=== PATIENT | female | born 1970 | race Caucasian/White ===

== ENCOUNTER 2017-11-18 12:52 | Outpatient (CLI) | payer BC | END 2017-11-18 12:53 | disposition home or self-care (01) | LOC: BICMAMMO 12:52 | PROVIDERS: ATTEND Obstetrics & Gynecology | DX: Z12.31 Encounter for screening mammogram for malignant neoplasm of breast (principal) | CPT/HCPCS: 77063; 77067 ==

== ENCOUNTER 2018-10-27 10:34 | Outpatient (CLI) | payer BC ==
--- NOTE | 2018-10-27 10:58 | ULT ---
FRenal ultrasound: INDICATION: History of recurrent UTIs COMPARISON: Prior complete abdominal ultrasound dated 12/16/2011 FINDINGS: No focal renal lesion or hydronephrosis is evident. The right kidney measured 9.8 x 6.3 x 6.4 cm. The left kidney measured 10.2 x 5.5 x 5 cm. The prevoid bladder volume was 178.04 cm. The left ureteral jet is seen at the level of the bladder. The right ureteral jet was not seen. IMPRESSION: No focal renal lesion or hydronephrosis. Transcribed Date/Time: 10/27/2018 11:14 AM
== END 2018-10-27 10:35 | disposition home or self-care (01) ==
LOC: BICULT 10:34
PROVIDERS: ATTEND Urology
DX: N39.0 Urinary tract infection, site not specified (principal); R35.0 Frequency of micturition; Z98.890 Other specified postprocedural states
CPT/HCPCS: 76770

== ENCOUNTER 2018-11-29 10:09 | Outpatient (CLI) | payer BC ==
--- NOTE | 2018-11-29 10:51 | MMO ---
Bilateral MAMMO Bilat Screen [facility]. CLINICAL HISTORY: Patient is 48 years old and is seen for screening. The patient has no family history of breast cancer. The patient has no personal history of cancer. VIEWS: The views performed were: bilateral craniocaudal with tomosynthesis and bilateral mediolateral oblique with tomosynthesis. FILMS COMPARED: The present examination has been compared to prior imaging studies performed at [facility] on 09/12/2012, 11/10/2013, 01/01/2015, 07/22/2016 and 11/18/2017. MAMMOGRAM FINDINGS: There are scattered fibroglandular densities. There are stable benign appearing calcifications seen in both breasts. There are no suspicious masses, suspicious calcifications, or new areas of architectural distortion. IMPRESSION: THERE IS NO MAMMOGRAPHIC EVIDENCE OF MALIGNANCY. A ROUTINE FOLLOW-UP MAMMOGRAM IN 1 YEAR IS RECOMMENDED. THE RESULTS OF THIS EXAM WERE SENT TO THE PATIENT. ACR BI-RADS Category 2 - Benign finding MAMMOGRAPHY NOTE: 1. A negative mammogram report should not delay a biopsy if a dominant of clinically suspicious mass is present. 2. Approximately 10% to 15% of breast cancers are not detected by mammography. 3. Adenosis and dense breasts may obscure an underlying neoplasm.
== END 2018-11-29 10:10 | disposition home or self-care (01) ==
LOC: BICMAMMO 10:09
PROVIDERS: ATTEND Obstetrics & Gynecology
DX: Z12.31 Encounter for screening mammogram for malignant neoplasm of breast (principal)
CPT/HCPCS: 77063; 77067

== ENCOUNTER 2020-03-20 12:06 | Outpatient (CLI) | payer BC ==
--- NOTE | 2020-03-20 12:48 | MMO ---
Bilateral MAMMO Bilat Screen [facility]. CLINICAL HISTORY: Patient is 49 years old and is seen for screening. The patient has no family history of breast cancer. The patient has no personal history of cancer. VIEWS: The views performed were: bilateral craniocaudal with tomosynthesis and bilateral mediolateral oblique with tomosynthesis. FILMS COMPARED: The present examination has been compared to prior imaging studies performed at [facility] on 01/01/2015, 07/22/2016, 11/18/2017 and 11/29/2018. This study has been interpreted with the assistance of computer-aided detection. MAMMOGRAM FINDINGS: There are scattered fibroglandular densities. Finding 1: There are stable benign appearing calcifications seen in both breasts. Finding 2: There is a stable intramammary lymph node seen in the right breast. There are no suspicious masses, suspicious calcifications, or new areas of architectural distortion. IMPRESSION: THERE IS NO MAMMOGRAPHIC EVIDENCE OF MALIGNANCY. A ROUTINE FOLLOW-UP MAMMOGRAM IN 1 YEAR IS RECOMMENDED. THE RESULTS OF THIS EXAM WERE SENT TO THE PATIENT. ACR BI-RADS Category 2 - Benign finding MAMMOGRAPHY NOTE: 1. A negative mammogram report should not delay a biopsy if a dominant of clinically suspicious mass is present. 2. Approximately 10% to 15% of breast cancers are not detected by mammography. 3. Adenosis and dense breasts may obscure an underlying neoplasm. Reported by: ALLY CANAS MD Electonically Signed: [id number]
== END 2020-03-20 12:07 | disposition home or self-care (01) ==
LOC: BICMAMMO 12:06
PROVIDERS: ATTEND Obstetrics & Gynecology
DX: Z12.31 Encounter for screening mammogram for malignant neoplasm of breast (principal)
CPT/HCPCS: 77063; 77067

== ENCOUNTER 2021-07-24 11:43 | Outpatient (CLI) | payer BC | END 2021-07-24 11:44 | disposition home or self-care (01) | LOC: BICMAMMO 11:43 | PROVIDERS: ATTEND Obstetrics & Gynecology | DX: Z12.31 Encounter for screening mammogram for malignant neoplasm of breast (principal) | CPT/HCPCS: 77063; 77067 ==

== ENCOUNTER 2022-03-04 16:46 | Emergency (ER) | payer BC ==
[2022-03-04 17:19] LABS: #Eosinphils 0.1 thou/uL (0.0-0.7); #Lymphocytes 2.1 thou/uL (1.20-3.40); #Monocytes 0.3 thou/uL (0.11-0.59); #Neutrophils 2.6 thou/uL (1.40-6.50); %Basophils 0.4 % (0.0-1.0); %Eosinophils 1.8 % (0.0-10.0); %Lymphocytes 41.1 % (21.0-51.0); %Monocytes 6.3 % (0.0-10.0); %Neutrophils 50.4 % (42.0-75.0); Hemoglobin 14.1 g/dL (12.0-16.0); Mean Corpuscular HGB CONC 33.7 g/dL (32.0-36.0); Mean Corpuscular Hemoglobin 31.4 pg (27.0-31.0); Mean Corpuscular Volume 93.3 fL (78.0-98.0); Mean Platelet Volume 7.6 fL (7.4-10.4); Platelet Count 162 thou/uL (130-400); RBC Distribution Width 11.4 % (11.5-14.5); Red Blood Cell (RBC) Count 4.48 mill/uL (4.20-5.40); White Blood Cell (WBC) Count 5.2 thou/uL (4.8-10.8)
[2022-03-04 17:41] LABS: ALT (SGPT) 20 U/L (8-55); AST (SGOT) 22 U/L (5-34); Albumin 4.2 g/dL (3.5-5.0); Alkaline Phosphatase 61 U/L (40-110); Anion Gap 9 mmol/L (10-20); BUN (Urea Nitrogen) 16 mg/dL (7.0-18.7); Bilirubin, Total 1.5 mg/dL (0.2-1.2); Calc. Creatinine Clearance 0 mL/min (70-130); Calcium 9.5 mg/dL (7.8-10.44); Carbon Dioxide 28 mmol/L (22-29); Chloride 106 mmol/L (98-107); Estimated GFR 73; Globulin 2.4 g/dL (2.4-3.5); Glucose 87 mg/dL (70-105); Potassium 3.8 mmol/L (3.5-5.1); Protein, Total 6.6 g/dL (6.0-8.3); Sodium 139 mmol/L (136-145)
[2022-03-04 18:49] LABS: Bilirubin Negative (Negative); Blood, Urine Negative (Negative); Clarity Clear (Clear); Glucose, Urine (Dipstick) Normal (Negative); Ketone, Urine Negative (Negative); Leukocyte Negative Leu/uL (Negative); Nitrite Negative (Negative); Protein, Urine (Dipstick) Negative (Neg-Trace); Specific Gravity, Urine 1.026 (1.002-1.036); Urobilinogen Normal mg/dL (Less than 2); pH, Urine 5.5 (5.0-9.0)
== END 2022-03-04 19:18 | disposition home or self-care (01) ==
LOC: ERS 16:46
DX: R07.89 Other chest pain (principal); R06.02 Shortness of breath; I25.2 Old myocardial infarction; E03.9 Hypothyroidism, unspecified; Z79.82 Long term (current) use of aspirin; Z79.899 Other long term (current) drug therapy
CPT/HCPCS: 36415; 71045; 80053; 81003; 83605; 83880; 84484; 85025; 93005

== ENCOUNTER 2024-06-19 08:59 | Outpatient (CLI) | payer BC | END 2024-06-19 09:00 | disposition home or self-care (01) | LOC: BICMAMMO 08:59 | PROVIDERS: ATTEND Family Medicine | DX: Z12.31 Encounter for screening mammogram for malignant neoplasm of breast (principal) | CPT/HCPCS: 77063; 77067 ==

== ENCOUNTER 2025-07-17 08:36 | Outpatient (CLI) | payer BC | END 2025-07-17 08:37 | disposition home or self-care (01) | LOC: BICMAMMO 08:36 | PROVIDERS: ATTEND Nurse Practitioner Family | DX: Z12.31 Encounter for screening mammogram for malignant neoplasm of breast (principal) | CPT/HCPCS: 77063; 77067 ==